=== PATIENT | female | born 1990 | race African-American/Black ===

== ENCOUNTER 2022-06-21 09:55 | Inpatient (IN) ==
[2022-06-21] MEDS ORDERED: CARBOPROST TROMETHAMINE 250 MCG/ML AMP IM PRN (10:57)
[2022-06-21] MEDS ORDERED: miSOPROStoL 200 MCG TABLET RECTAL PRN (10:57)
[2022-06-21] MEDS ORDERED: METHYLERGONOVINE 0.2 MG/1 ML AMP IM PRN (10:57)
[2022-06-21] MEDS ORDERED: TRANEXAMIC ACID 1,000 MG in SODIUM CHLORIDE 0.9% 100 ML IV PRN (10:57)
[2022-06-21] MEDS ORDERED: OXYTOCIN/LR 20 UNIT/1,000 ML BAG IV ONE ×2 (10:57→16:46)
[2022-06-21] MEDS ORDERED: FAMOTIDINE 20 MG/2 ML VIAL IV ONE (10:57)
[2022-06-21] MEDS ORDERED: CITRIC ACID/SODIUM CITRATE 30 ML UDCUP PO ONE (10:57)
[2022-06-21] MEDS ORDERED: CLINDAMYCIN INJ 900 MG/50 ML PREMIX IV ONE (10:57)
[2022-06-21] MEDS ORDERED: LACTATED RINGERS 1,000 ML IV SCH (11:00)
[2022-06-21 11:14] LABS: Basophils % 0.4 % (0.0-0.8); Eosinophils % 0.4 % (0.00-10.9); Hematocrit 29.9 VOL% (35.7-47.0); Hemoglobin 8.9 GM/DL (12.0-16.0); Immature Granulocytes % 0.9 %; Immature Granulocytes Absolute 0.05 #; Lymphocytes # 1.4 10*3/uL (1.4-4.0); Lymphocytes % 24.2 % (21.3-54.2); Mean Corpuscular HGB Conc 29.8 GM/DL (32-36); Mean Corpuscular Volume 68.4 FL (87-102); Mean Platelet Volume 9.7 FL (9.6-12.0); Monocytes # 0.4 10*3/uL (0.11-0.8); Monocytes % 7.4 % (1.7-12.7); Neutrophils % 66.7 % (38.7-73.9); Platelet Count 295 T/CUMM (130-400); Red Blood Count 4.37 MC/CUMM (3.8-5.5); Red Cell Distribution Width 21.2 % (9.3-17.3); White Blood Count 5.6 T/CUMM (4-12)
[2022-06-21 11:30] LABS: INR 0.9
[2022-06-21] MEDS ORDERED: ONDANSETRON 4 MG/2 ML VIAL ONE (12:19)
[2022-06-21] MEDS ORDERED: buprenorphine HCL 0.3 MG/ML VIAL ONE (12:19)
[2022-06-21] MEDS ORDERED: BUPIVACAINE SPINAL 0.75% 2 ML AMP SPINAL ONE (12:23)
[2022-06-21] MEDS ORDERED: OXYTOCIN 10 UNIT/ML VIAL IM ONE (13:29)
[2022-06-21] MEDS ORDERED: OXYTOCIN/LR 30 UNIT/1,000 ML BAG IV ONE ×2 (13:29→16:50)
[2022-06-21] MEDS ORDERED: ACETAMINOPHEN INJ 1,000 MG/100 ML VIAL IV ONE (15:31)
[2022-06-21] MEDS ORDERED: KETOROLAC 30 MG/1 ML VIAL ONE (15:31)
[2022-06-21] MEDS ORDERED: ALBUMIN 5% 12.5 GM/250 ML VIAL IV ONE ×2 (15:53)
[2022-06-21] MEDS ORDERED: SODIUM CHLORIDE 0.9% 1,000 ML IV PRN (15:55)
[2022-06-21] MEDS ORDERED: SEVOFLURANE 1 UNIT/15 MINUTE INH ONE (16:17)
[2022-06-21] MEDS ORDERED: propofoL 200 MG/20 ML VIAL IV ONE (16:17)
[2022-06-21] MEDS ORDERED: SUCCINYLCHOLINE 200 MG/10 ML VIAL ONE (16:17)
[2022-06-21 16:18] LABS: Bacteria,Urine Occasional /HPF (Few); Mucus,Urine Many /LPF (Occasional); RBC,Urine 2 /HPF (0-4); Squamous Epithelial Cell,Urine Occasional /HPF (0-10)
[2022-06-21] MEDS ORDERED: fentaNYL 100 MCG/2 ML VIAL ONE (16:18)
[2022-06-21 16:19] LABS: Bilirubin,Urine Negative (Negative); Blood, Urine Trace mg/dL (Negative); Glucose,Urine (UA) Negative (Negative); Ketones,Urine >=160 mg/dL (Negative); Nitrite,Urine Negative (Negative); Protein,Urine Negative (Negative); Urine Appearance Clear (Clear); Urine Color Yellow (Yellow); Urine Specific Gravity 1.025 (1.001-1.035)
[2022-06-21 16:29] LABS: Cord Venous Blood HCO3 22.6 MMOL/L; Cord Venous Blood PCO2 57.1 MMHG; Cord Venous Blood PO2 31.4
[2022-06-21] MEDS ORDERED: MIDAZOLAM 2 MG/2 ML VIAL ONE (16:36)
[2022-06-21] MEDS ORDERED: SIMETHICONE CHEW 80 MG TABLET PO PRN (16:46)
[2022-06-21] MEDS ORDERED: ONDANSETRON 4 MG/2 ML VIAL IV PRN (16:46)
[2022-06-21] MEDS ORDERED: RHO(D) IMMUNE GLOBULIN 300 MCG SYRINGE IM ONE (16:46)
[2022-06-21] MEDS ORDERED: ACETAMINOPHEN 325 MG TABLET PO PRN (16:46)
[2022-06-21] MEDS: LACTATED RINGERS 1,000 ML IV SCH (20:01)
[2022-06-21 21:18] LABS: Hematocrit 29.8 VOL% (35.7-47.0); Hemoglobin 9.5 GM/DL (12.0-16.0)
[2022-06-21] MEDS: DOCUSATE SODIUM 100 MG CAPSULE PO SCH (23:22)
[2022-06-21] MEDS: FUROSEMIDE 40 MG/4 ML VIAL IV SCH (23:23)
[2022-06-22] MEDS: LACTATED RINGERS 1,000 ML IV SCH (04:07)
[2022-06-22] MEDS: FUROSEMIDE 40 MG/4 ML VIAL IV SCH ×2 (05:07→11:12)
[2022-06-22 06:36] LABS: Basophils % 0.3 % (0.0-0.8); Eosinophils % 0.2 % (0.00-10.9); Hematocrit 27.3 VOL% (35.7-47.0); Hemoglobin 8.8 GM/DL (12.0-16.0); Immature Granulocytes Absolute 0.12 #; Lymphocytes # 1.5 10*3/uL (1.4-4.0); Lymphocytes % 12.4 % (21.3-54.2); Mean Corpuscular HGB Conc 32.2 GM/DL (32-36); Mean Corpuscular Volume 73.8 FL (87-102); Monocytes % 8.2 % (1.7-12.7); Neutrophils % 77.9 % (38.7-73.9); Platelet Count 195 T/CUMM (130-400); Red Cell Distribution Width 21.1 % (9.3-17.3); White Blood Count 11.7 T/CUMM (4-12)
[2022-06-22] MEDS: DOCUSATE SODIUM 100 MG CAPSULE PO SCH ×2 (08:28→22:05)
[2022-06-22] MEDS: MAGNESIUM HYDROXIDE SUSP 30 ML UDCUP PO PRN (09:24)
[2022-06-22] MEDS: MULTIVITAMIN (PRENATAL) TABLET PO SCH (09:24)
[2022-06-22] MEDS: IBUPROFEN 800 MG TABLET PO PRN ×2 (13:55→22:06)
[2022-06-22] MEDS: FERROUS SULFATE 325 MG TABLET PO SCH (22:05)
[2022-06-23] MEDS: FERROUS SULFATE 325 MG TABLET PO SCH ×2 (09:22→21:16)
[2022-06-23] MEDS: MAGNESIUM HYDROXIDE SUSP 30 ML UDCUP PO PRN (09:23)
[2022-06-23] MEDS: MULTIVITAMIN (PRENATAL) TABLET PO SCH (09:23)
[2022-06-23] MEDS: DOCUSATE SODIUM 100 MG CAPSULE PO SCH ×2 (09:23→21:16)
[2022-06-23] MEDS: METOCLOPRAMIDE 10 MG TABLET PO SCH ×3 (09:23→22:20)
[2022-06-23] MEDS ORDERED: RHO(D) IMMUNE GLOBULIN 300 MCG SYRINGE IM ONE (19:00)
[2022-06-24] MEDS: METOCLOPRAMIDE 10 MG TABLET PO SCH ×3 (03:30→15:57)
[2022-06-24] MEDS ORDERED: RHO(D) IMMUNE GLOBULIN 300 MCG SYRINGE IM ONE (08:00)
[2022-06-24] MEDS: DOCUSATE SODIUM 100 MG CAPSULE PO SCH (09:47)
[2022-06-24] MEDS: MAGNESIUM HYDROXIDE SUSP 30 ML UDCUP PO PRN (09:47)
[2022-06-24] MEDS: FERROUS SULFATE 325 MG TABLET PO SCH (09:47)
[2022-06-24] MEDS: IBUPROFEN 800 MG TABLET PO PRN (12:06)
[2022-06-24 16:05] VITALS: BP 115/68
== END 2022-06-24 16:35 | disposition home or self-care (01) | DRG 540 ==
LOC: N.LD 09:55 → N.OB 06-22 08:49
PROVIDERS: ADMIT Obstetrics & Gynecology; ATTEND Obstetrics & Gynecology
PROC: LDCSECT (ICD-10-PCS; 2022-06-21 14:00)